=== PATIENT | female | born 1930 | race Caucasian/White ===

== ENCOUNTER → 2017-01-01 | Outpatient (CLI) | payer MEDICARE, BC ==
[~2017-01-01] MED LIST: ASPIR 8181 MG PO; BENADRYL25 MG PO; BUMEX1 MG PO; COLACE100 MG PO; COREG6.25 MG PO; COUMADIN5 MG PO; FEOSOL325 MG PO; FISH OIL1000 MG PO; K-TAB 10MEQ10 MEQ PO; LASIX80 M1 PO; LEVOTHROID (SY25 MCG PO; LOVENOX 4040 MG/0.4 SUB-Q; MAG-OX-400(241400 MG PO; MELATONIN5 M2 PO; MILK OF MA400 MG/5 M PO; MIRALAX17 GM PO; OMEPRAZOLE40 MG PO; PRINIVIL20 MG PO; REMERON15 MG PO; TYLENOL EXTRA500 MG PO; TYLENOL325 MG PO; ULTRAM50 MG PO; VITAMIN D35000 UNI1 PO; ZYRTEC10 MG PO
[2017-01-01 14:05] LABS: BASOPHIL # 0.1 K/uL (0.0-0.2); BASOPHIL % 1.3 %; EOSINOPHIL # 0.4 K/uL (0.0-0.5); EOSINOPHIL % 6.9 %; HEMATOCRIT 39.3 % (30.0-46.0); HEMOGLOBIN 12.7 g/dL (10.0-15.0); IMMATURE GRANULOCYTE % 0.2 %; LYMPHOCYTE # 1.1 K/uL (0.8-4.0); LYMPHOCYTE % 19.5 %; MCH 29.1 pg (27.0-34.0); MCHC 32.3 gm/dL (32.0-36.5); MCV 89.9 fl (83.0-98.0); MONOCYTE # 0.6 K/uL (0.0-1.0); MONOCYTE % 11.5 %; MPV 10.6 fl (9.4-12.4); NEUTROPHIL # (ANC) 3.3 K/uL (1.8-7.8); NEUTROPHIL % 60.6 %; NRBC % 0 /100WBC (0-0.00); PLATELET COUNT 150 K/uL (150-450); RBC 4.37 M/uL (3.00-5.00); RDW-CV 15.7 % (11.9-14.6); WBC 5.4 K/uL (4.0-11.0)
[2017-01-01 14:20] LABS: ALBUMIN 3.3 gm/dL (3.5-5.0); ANION GAP 12.8 (10.0-19.0); CALCIUM 8.6 mg/dL (8.5-10.5); CREATININE 1.4 mg/dL (0.5-1.1); PHOSPHORUS 3.3 mg/dL (2.5-4.9); POTASSIUM 3.8 mMol/L (3.7-5.1)
== END | disposition disaster alternative care site (69) ==
LOC: LCNC 13:57
PROVIDERS: Internal Medicine Interventional Cardiology
DX: I49.5 Sick sinus syndrome (principal); I10 Essential (primary) hypertension; E03.9 Hypothyroidism, unspecified